=== PATIENT | male | born 1950 | race Caucasian/White ===

== ENCOUNTER 2018-01-24 08:51 | Day surgery (SDC) | payer OTHER ==
[2018-01-24] MEDS ORDERED: MEPERIDINE 25 MG/ML SYR IVP PRN (09:12)
[2018-01-24] MEDS ORDERED: fentaNYL 100 MCG/2 ML INJ IVP PRN (09:12)
[2018-01-24] MEDS ORDERED: NALOXONE HCL 0.4 MG/ML INJ IVP PRN (09:12)
[2018-01-24] MEDS ORDERED: FLUMAZENIL 0.5 MG/5 ML MDV IVP PRN (09:12)
[2018-01-24] MEDS ORDERED: MIDAZOLAM 2 MG/2 ML VIAL IVP PRN (09:12)
[2018-01-24] MEDS ORDERED: NS 1,000 ML IV SCH (09:15)
[2018-01-24] MEDS ORDERED: IOPAMIDOL (ISOVUE-300) 100 ML BTL ONE (10:32)
--- NOTE | 2018-01-24 10:53 | PDRADPRE ---
Radiology History & Physical Indication for procedure: cancer (Obstructive right hydronephrosis) Home medications: Acyclovir [Zovirax 200 mg] 200 mg PO BID 09/12/10 [Last Taken 01/23/18 17:00 200 ] Prednisone 20 mg PO QID 09/12/10 [Last Taken 01/23/18 14:00 20 mg] Aspirin 325 mg (*) 325 mg PO DAILY 01/23/18 [Last Taken 01/23/18 08:00 325 mg] Revlimid 01/23/18 [Last Taken 01/23/18 08:30 1 tab] morphINE [morphINE SCN ORAL SYR] 0.4 mg PO Q4HRS 01/23/18 [Last Taken 01/23/18 18:00 0.4] Prilosec 1 tab PO BID PRN 01/24/18 [Last Taken 01/23/18 19:00 1 tab] Allergies/Adverse Reactions: Sulfa (Sulfonamide Antibiotics) Allergy (Severe, Verified 11/11/10 08:55) Fever Mental status: A&Ox3 Heart exam: regular rate and rhythm Lungs exam: clear to auscultation Mallampati Score: Class 2
--- NOTE | 2018-01-24 10:53 | PDPROPOC ---
Sedation Plan of Care Sedation Plan of Care: vital signs stable, mental status noted, patient educated of risks, benefits, alternatives, patient can tolerate sedation ASA Classification: ASA 2 Planned drugs: fentanyl, midazolam Mallampati Score: Class 2 Mallampati Reference Image: Patient passed 3-3-2 rule?: Yes
--- NOTE | 2018-01-24 11:28 | PDRADPN ---
Radiology Procedure Note Date of Procedure: 01/24/18 Radiologist: Warren Loera Anesthesia: IV Sedation Pre-op Diagnosis: hydronephrosis Post-op Diagnosis: hydronephrosis Indication: malignant right ureteral obstruction Procedure: Right PCN tube Finding(s): severe right hydroureteronephrosis. 8 Fr PCN tube placed without complication. Inf/Abcess present in the surg proc area at time of surgery?: No Drains: Nephrostomy
[2018-01-24 14:58] VITALS: BP 101/56
== END 2018-01-24 15:13 | disposition home or self-care (01) ==
LOC: FIMAGING 08:51
PROVIDERS: ATTEND Radiology Vascular & Interventional Radiology
PROC: BT41ZZZ Ultrasonography of Right Kidney (ICD-10-PCS; principal; 2018-01-24 11:45)
PROC: 0T9330Z Drainage of Right Kidney Pelvis with Drainage Device, Percutaneous Approach (ICD-10-PCS; principal; 2018-01-24 11:45)
PROC: BT111ZZ Fluoroscopy of Right Kidney using Low Osmolar Contrast (ICD-10-PCS; principal; 2018-01-24 11:45)
DX: N13.0 Hydronephrosis with ureteropelvic junction obstruction (principal); C90.00 Multiple myeloma not having achieved remission; Z88.2 Allergy status to sulfonamides
CPT/HCPCS: 50432; 99152; C1729; C1769; J0696; J1644; J2250; J3010; Q9967

== ENCOUNTER 2018-03-05 14:45 | Inpatient (IN) | payer OTHER ==
[2018-03-05] MEDS ORDERED: ONDANSETRON DISINTEGRATING 4 MG TAB PO PRN (17:28)
[2018-03-05] MEDS ORDERED: oxyCODONE IR 5 MG TAB PO PRN (17:28)
[2018-03-05] MEDS ORDERED: ONDANSETRON 4 MG/2 ML VIAL IVP PRN (17:28)
[2018-03-05] MEDS ORDERED: ACETAMINOPHEN 325 MG TAB PO PRN (17:28)
[2018-03-05] MEDS ORDERED: PROMETHAZINE HCL 25 MG/ML INJ IVP PRN (17:28)
[2018-03-05] MEDS ORDERED: HYDROCODONE/APAP 5/325 TAB PO PRN (17:28)
--- NOTE | 2018-03-05 18:32 | PDGENHP ---
History and Physical - Chief Complaint weakness, abd swelling - History of Present Illness Patient is a 67 year old patient of Dr. 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 Patient notes that he also has abdominal pain, but denies diarrhea, nausea, vomiting, fever or chills. He did have issues recently with right sided hydronephrosis due to extrinsic compression from his abdominal mass and was treated with perc neph tube. He had his last course of chemotherapy on 02/23 ( velcaid and revlimid) and notes that he has been feeling poorly ever since then. He has not been able to eat very much and has lost a significant amount of weight, he thinks up to 30 pounds. At [facility] an abdominal CT was ordered which showed new left sided hydronephrosis, colon thickening and a questionable right lower lobe infiltrate. He was given IV vancomycin, zosyn, ceftriaxone, azithromycin and tamiflu at [facility]--it does not appear that a flu swab or blood or urine cultures were obtained there. History Information - Allergies/Home Medication List Allergies/Adverse Reactions: Sulfa (Sulfonamide Antibiotics) Allergy (Severe, Verified 11/11/10 08:55) Fever Home Medications: Acyclovir [Zovirax 200 mg] 200 mg PO BID 09/12/10 [Last Taken 01/23/18 17:00 200 ] Prednisone 20 mg PO QID 09/12/10 [Last Taken 01/23/18 14:00 20 mg] Aspirin 325 mg (*) 325 mg PO DAILY 01/23/18 [Last Taken 01/23/18 08:00 325 mg] Revlimid 01/23/18 [Last Taken 01/23/18 08:30 1 tab] morphINE [morphINE SCN ORAL SYR] 0.4 mg PO Q4HRS 01/23/18 [Last Taken 01/23/18 18:00 0.4] Prilosec 1 tab PO BID PRN 01/24/18 [Last Taken 01/23/18 19:00 1 tab] I have personally reviewed and updated: family history, medical history, social history, surgical history - Past Medical History cancer (NHL, now new dx of plasmacytoma), GERD - Surgical History Reports: no pertinent surgical hx - Family History Positive for: non-pertinent - Social History Smoking Status: Former smoker Alcohol Use: None Drug Use: None Additional social history: Review of Systems Review of Systems: ROS: 10pt was reviewed & negative except for what was stated in HPI & below Physical Exam Physical Exam: Temp Pulse Resp BP Pulse Ox 36.1 C 87 16 99/62 L 90 L 03/05/18 17:35 03/05/18 17:35 03/05/18 17:35 03/05/18 17:35 03/05/18 17:35 O2 (L/minute) 2 Constitutional: chronically ill appearing, uncomfortable, cachectic Eyes: PERRL, anicteric sclera Ears, Nose, Mouth, Throat: ears appear normal, dry mucous membranes Cardiovascular: regular rate and rhythym, no murmur, rub, or gallop, No edema Respiratory: no respiratory distress, no rales or rhonchi Gastrointestinal: tenderness, distension, No soft, non-tender abdomen, No guarding, No rebound Genitourinary: no bladder tenderness Skin: warm, normal color Musculoskeletal: full muscle strength Neurologic: AAOx3 Psychiatric: interacting appropriately, not anxious, flat affect Lab Data & Imaging Review Reviewed labs from [facility]: Wbc 21.1, HCt 32.6, Plt 181 Na 133, K 4.9, BUN 70, Creat 2.2 Visualized and Interpreted imaging results: Yes Interpretation: Reviewed CT report from [facility]: moderate R sided hydro. Ext thickening in colon wall. extensive adenopathy. mets adjacent to heart and lungs Assessment & Plan Assessment: Hydronephrosis (Acute) 67 yo M with hx of NHL and new dx of large intra abdominal plasmacytoma (dx in ) currently undergoing chemo with myeloma regimen presenting with generalized weakness with abdominal distension, brenna with new left hydronephrosis and likely pna. 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 Given extensive colon thickening possibility of infectious enteritis also exists though could all be related to cancer progression. Not clearly a surgical abdomen at this time but low threshold for repeat imaging if not improving. # plasmacytoma: being treated with velcaid and revlimid with last course on 02/23 , discussed with Dr. Borja and oncology will follow while in house. Discussed with patient and his who have been told that he is responding well to treatment currently, unfortunately in reviewing imaging there are multiple studies performed in different hospitals and very few reports comparing to prior imaging available. Will need to obtain CD from [facility]. # BRENNA: with creatinine on 02/23 noted to be 0.9, currently 2.2. Presumably due to obstructive nephropathy with e/o hydronephrosis due to extrinsic compression from extensive intra abdominal masses/adenopathy. Will get abd US to eval for perc neph placement in am. # bilateral hydronephrosis: with right sided perc neph and now likely needing left in am # pna: with concerns of RLL infiltrate on abd CT from [facility], blood cultures obtained there prior to abx, has gotten vanc/zosyn/ctx/azith/tamiflu today--will continue ctx/azith for now pending culture data. Will get CXR to further eval possible RLL infiltrate. Will get procalcitonin and resp PCR to eval for flu/other viral respiratory pathogens. # leukocytosis: without other clear SIRS criteria currently, will trend, patient has been on steroids recently # hx of NHL # protein calorie malnutrition: patient with significant weight loss and cachectic on exam, LFTs pending to check albumin, will get dietary consult # Full code. Discussed with patient and his , at this time they are not ready to discuss comfort care/hospice but understand that if things continue to decline that might be the most appropriate course. Will ask for palliative consult. # IP status, will need > 48 hours stay for eval/mgmt of above Patient new to my care. Old records reviewed and summarized as above. Care plan reviewed with ER doc from [facility] including plan to transfer, care plan reviewed with Dr. Borja. Further hx obtained from present at bedside.
[2018-03-05 18:57] LABS: PLATELET COUNT 196 10^3/uL (150-400)
[2018-03-05] MEDS: NS 1,000 ML IV SCH (20:30)
[2018-03-06 05:09] LABS: PLATELET COUNT 197 10^3/uL (150-400)
[2018-03-06] MEDS: VANCOMYCIN 125 MG/2.5 ML UDL PO SCH ×5 (05:32→20:47)
[2018-03-06] MEDS: NS 1,000 ML IV SCH (07:23)
--- NOTE | 2018-03-06 08:20 | PDMN ---
Medical Necessity Medical necessity: MCG: GRG urologic disease: bilateral hydronephrosis- pt presents with generalized weakness, abd pain/ distention min. bowel sounds, currently undergoing chemo with myeloma regimen for new dx large intra abdominal plasmacytoma, NHL, also with BRENNA Cr. 2.2, also concern for cPNA, RLL infiltrate seen on abd CT., leukocytosis, protein calorie malnutrition- sig. wt. loss, will obtain dietary consult., oncology consults. anticipate > 2 MN ongoing med nec care, further eval and tx
[2018-03-06] MEDS ORDERED: AZITHROMYCIN IV 500 MG in NS 250 ML IV SCH (09:00)
--- NOTE | 2018-03-06 09:09 | HOSPPROG ---
Hospitalist Progress Note Assessment/Plan: Critical care note Greater than 90 min of critical care time spent at bedside with 4 different visits today Patient of Dr. Borja on Velcade and Revlimid for a plasmacytoma in the abdomen with diffuse metastatic abdominal disease and retroperitoneal disease, after prior history of non-Hodgkin's lymphoma; presents now with weakness loss of appetite, weight loss, abdominal pain and distension and has just started having loose stools DIAGNOSES: * acute severe sepsis with organ failure has developed this morning; immune compromised host * C difficile colitis suspected with positive stool sample; clinically quite severe with significant distention of transverse colon, rapidly progressive renal failure hypotension tachycardia despite vancomycin and IV fluids overnight * acute renal failure, appears anuric at present despite IV fluids overnight * Will need to see if he responds to rapid fluid resuscitation with urine output * narrow complex tachycardia in the 165 range, on bedside monitor appears likely C diff but 12 lead EKG pending * history of hydronephrosis from retroperitoneal disease, percutaneous nephrostomy in place on right side * No current evidence of hydronephrosis per ultrasound here; question of anurea is impacting that finding * acute right lower lobe pneumonia based on abdominal CT from [facility] * Cultures pending at [facility] * Empiric Rocephin azithromycin started * acute metabolic encephalopathy due to above * known omental carcinomatosis and other peritoneal disease * protein calorie malnutrition * on treatment for plasmacytoma with Velcade and Revlimid, prior history of non- Hodgkin's lymphoma * full code per patient's desire PLANS: * Severe Sepsis protocol initiated, we have placed to new IVs here at the bedside but he will need PICC catheter * Transfer ICU * IV Flagyl ordered * Pending 12 lead EKG, he does have AFib may need to consider cardioversion or amiodarone depending on his stability * Dr. Brigette Montemayor will see from Infectious Disease, will also consult Critical Care and Nephrology * Further urine studies pending * NPO for now * Continue full cor order, as patient is non conversant, but will need to follow his course carefully and if he does not respond favorably to treatment of the above illnesses, his situation could turn futile SUBJECTIVE: Patient unable to respond verbally or follow commands OBJECTIVE Vitals reviewed: No fevers, blood pressure is a bit low, otherwise stable vitals Studio Coordinator, my review: Exam: Eyes closed, others some unintelligible noises occasionally but no response to verbal communication, some purposeful movements skin warm pale with significant decrease in capillary perfusion of digits resps not labored lungs diminished breath sounds patient unable to cooperate with any deep breaths heart regular abd soft obviously diffusely tender, slightly tense, limbs edema Right nephroscopy tube in place, currently no urine draining; Elise catheter in place again currently with no urine out Imaging: Abdominal ultrasound shows no evidence of hydronephrosis at present Objective: Vital Signs Temp Pulse Resp BP Pulse Ox 36.3 C 94 14 96/54 L 93 03/06/18 04:44 03/06/18 04:44 03/06/18 04:44 03/06/18 04:44 03/06/18 04:44 Microbiology 03/05/18 23:45 Respiratory Panel (PCR) - Final Nasal, Sinus - Swab No Organism Detected Laboratory Results 03/06/18 04:32 03/06/18 04:32 03/05/18 03/06/18 03/07/18 06:59 06:59 06:59 Intake Total 785 Balance 785 ICD10 Worksheet Patient Problems: Problems Problem Status Onset Hydronephrosis Acute
[2018-03-06] MEDS ORDERED: NS 1,000 ML IV ONE ×2 (10:16)
[2018-03-06] MEDS: HYDROmorphONE/DILAUDID 1 MG/ML INJ IVP PRN ×4 (12:24→22:38)
[2018-03-06] MEDS ORDERED: ALTEPLASE 2 MG VIAL IVP PRN (12:33)
--- NOTE | 2018-03-06 14:01 | PDCONSULT ---
Route Sales Delivery Driver Note: History and Physical - Chief Complaint Weakness - History of Present Illness The patient is a 67 y/o M with a known h/o a plasmacytoma currently on Velcade and Revlamid (due for 4th tx today) who presented yesterday from [facility] for diarrhea, weakness, and abdominal pain. The patient himself has been nearly obtunded since admission and unable to provide history, however his reports that he has not been feeling well for a few days and having severe constipation. No fever, chills, vomiting, or cough. He has lost a significant amount of weight due to poor po intake. He has a known h/o nephrolithiasis and has passed several stones. In addition, he had extrinsic compression due to his abdominal mass causing hydronephrosis of the R kidney and is s/p nephrostomy tube placement. Upon admission, he was diagnosed with C.diff infection and became more hypotensive and oliguric in the last 12 hours and was moved to the ICU. At present, he has a de león in place and is starting to make some UO. and daughter at bedside. Per his daughter he has been very stubborn about the severity of his illness and is still full code at this point. History Information - Allergies/Home Medication List Sulfa (Sulfonamide Antibiotics) Allergy (Severe, Verified 11/11/10 08:55) Fever Home Medications: Acyclovir [Zovirax 200 mg] 200 mg PO BID 09/12/10 [Last Taken 01/23/18 17:00 200 ] Prednisone 20 mg PO QID 09/12/10 [Last Taken 01/23/18 14:00 20 mg] Aspirin 325 mg (*) 325 mg PO DAILY 01/23/18 [Last Taken 01/23/18 08:00 325 mg] Revlimid 01/23/18 [Last Taken 01/23/18 08:30 1 tab] morphINE [morphINE SCN ORAL SYR] 0.4 mg PO Q4HRS 01/23/18 [Last Taken 01/23/18 18:00 0.4] Prilosec 1 tab PO BID PRN 01/24/18 [Last Taken 01/23/18 19:00 1 tab] - Past Medical History cancer (NHL, now new dx of plasmacytoma), GERD, nephrolithiasis - Surgical History R hydronephrosis s/p nephrostomy - Family History Non-contributory - Social History Smoking Status: Former smoker Alcohol Use: None Drug Use: None Review of Systems ROS: 10pt was reviewed & negative except for what was stated in HPI & below Physical Exam Physical Exam: General: Not waking up to voice, cachectic HEENT: No trauma, dry MM Neck: No lymphadenopathy noted, no thyromegaly RESP: CTA b/l HEART: RRR, no murmurs ABD: Distended, no guarding EXT: No edema, thin De León in place Temp Pulse Resp BP Pulse Ox 36.3 C 83 12 89/56 L 99 03/06/18 04:44 03/06/18 13:00 03/06/18 13:00 03/06/18 13:00 03/06/18 13:00 O2 (L/minute) 4 Labs: WBC 19.20 10^3/uL (3.80-9.50) H 03/06/18 04:32 RBC 3.92 10^6/uL (4.40-6.38) L 03/06/18 04:32 Hgb 11.9 g/dL (13.7-17.5) L 03/06/18 04:32 Hct 35.6 % (40.0-51.0) L 03/06/18 04:32 MCV 90.8 fL (81.5-99.8) 03/06/18 04:32 MCH 30.4 pg (27.9-34.1) 03/06/18 04:32 MCHC 33.4 g/dL (32.4-36.7) 03/06/18 04:32 RDW 15.8 % (11.5-15.2) H 03/06/18 04:32 Plt Count 197 10^3/uL (150-400) 03/06/18 04:32 MPV 12.1 fL (8.7-11.7) H 03/06/18 04:32 Neut % (Auto) Not Reported 03/06/18 04:32 Lymph % (Auto) Not Reported 03/06/18 04:32 [place] % (Auto) Not Reported 03/06/18 04:32 Eos % (Auto) Not Reported 03/06/18 04:32 Baso % (Auto) Not Reported 03/06/18 04:32 Nucleat RBC Rel Count Not Reported 03/06/18 04:32 Absolute Neuts (auto) Not Reported 03/06/18 04:32 Absolute Lymphs (auto) Not Reported 03/06/18 04:32 Absolute Monos (auto) Not Reported 03/06/18 04:32 Absolute Eos (auto) Not Reported 03/06/18 04:32 Absolute Basos (auto) Not Reported 03/06/18 04:32 Absolute Nucleated RBC Not Reported 03/06/18 04:32 Immature Gran % Not Reported 03/06/18 04:32 Seg Neutrophils % 45.0 % 03/06/18 04:32 Band Neutrophils % 13.0 % 03/06/18 04:32 Lymphocytes % 8.0 % 03/06/18 04:32 Monocytes % 34.0 % 03/06/18 04:32 Eosinophils % 0.0 % 03/06/18 04:32 Basophils % 0.0 % 03/06/18 04:32 Metamyelocytes % 0.0 % 03/06/18 04:32 Myelocytes % 0.0 % 03/06/18 04:32 Promyelocytes % 0.0 % 03/06/18 04:32 Blast Cells % 0.0 % 03/06/18 04:32 Immature Gran # Not Reported 03/06/18 04:32 Absolute Seg Neuts 8.64 10^/uL (1.70-6.50) H 03/06/18 04:32 Absolute Band Neuts 2.50 10^3/uL (0.00-0.70) H 03/06/18 04:32 Absolute Lymphocytes 1.54 10^3/uL (1.00-3.00) 03/06/18 04:32 Absolute Monocytes 6.53 10^3/uL (0.30-0.80) H 03/06/18 04:32 Absolute Eosinophils 0.00 10^3/uL (0.03-0.40) L 03/06/18 04:32 Absolute Basophils 0.00 10^3/uL (0.02-0.10) L 03/06/18 04:32 Absolute Metamyelocyte 0.00 10^3/mL (0.00-0.00) 03/06/18 04:32 Absolute Myelocytes 0.00 10^3/mL (0.00-0.00) 03/06/18 04:32 Absolute Promyelocytes 0.00 10^3/uL (0.00-0.00) 03/06/18 04:32 Absolute Plasma Cells 0.00 10^3/uL (0.00-0.00) 03/06/18 04:32 Nucleated RBCs 0 /100 WBC (0-0) 03/05/18 18:50 Absolute Blast Cells 0.00 10^3/uL (0.00-0.00) 03/06/18 04:32 Plasma Cells % 0.0 % 03/06/18 04:32 Platelet Estimate ADEQUATE (ADEQ) 03/06/18 04:32 Polychromasia 1+ H 03/06/18 04:32 Oval Macrocytes 1+ H 03/06/18 04:32 Echinocytes 1+ H 03/06/18 04:32 Elliptocytes 1+ H 03/05/18 18:50 Smear Review By Aria NAVAS MD 03/06/18 04:32 VBG Lactic Acid 3.2 mmol/L (0.7-2.1) H 03/06/18 13:35 Sodium 132 mEq/L (135-145) L 03/06/18 10:00 Potassium 5.8 mEq/L (3.3-5.0) H 03/06/18 10:00 Chloride 101 mEq/L (97-110) 03/06/18 10:00 Carbon Dioxide 13 mEq/l (22-31) L 03/06/18 10:00 Anion Gap 18 mEq/L (6-14) H 03/06/18 10:00 BUN 92 mg/dL (7-23) H 03/06/18 10:00 Creatinine 2.9 mg/dL (0.7-1.3) H 03/06/18 10:00 Estimated GFR 22 03/06/18 10:00 Glucose 146 mg/dL (70-100) H 03/06/18 10:00 Calcium 7.0 mg/dL (8.5-10.4) L 03/06/18 10:00 Phosphorus 9.5 mg/dL (2.5-4.5) H 03/06/18 04:32 Magnesium 1.8 mg/dL (1.6-2.3) 03/06/18 04:32 Total Bilirubin 0.5 mg/dL (0.1-1.4) 03/06/18 Unknown Conjugated Bilirubin 0.4 mg/dL (0.0-0.5) 03/05/18 18:50 Unconjugated Bilirubin 0.1 mg/dL (0.0-1.1) 03/05/18 18:50 AST 18 IU/L (17-59) 03/05/18 18:50 ALT 29 IU/L (21-72) 03/05/18 18:50 Alkaline Phosphatase 53 IU/L (38-126) 03/05/18 18:50 Total Protein 5.1 g/dL (6.3-8.2) L 03/05/18 18:50 Albumin 2.7 g/dL (3.5-5.0) L 03/05/18 18:50 Procalcitonin 5.25 ng/mL (0.02-0.10) H 03/05/18 18:50 Urine Color YELLOW 03/06/18 01:30 Urine Appearance TURBID 03/06/18 01:30 Urine pH 5.0 (5.0-7.5) 03/06/18 01:30 Ur Specific [place] 1.018 (1.002-1.030) 03/06/18 01:30 Urine Protein 2+ (NEGATIVE) H 03/06/18 01:30 Urine Ketones NEGATIVE (NEGATIVE) 03/06/18 01:30 Urine Blood 3+ (NEGATIVE) H 03/06/18 01:30 Urine Nitrate NEGATIVE (NEGATIVE) 03/06/18 01:30 Urine Bilirubin NEGATIVE (NEGATIVE) 03/06/18 01:30 Urine Urobilinogen NEGATIVE EU (0.2-1.0) 03/06/18 01:30 Ur Leukocyte Esterase 3+ (NEGATIVE) H 03/06/18 01:30 Urine RBC 50-182 /hpf (0-3) H 03/06/18 01:30 Urine WBC 50-182 /hpf (0-3) H 03/06/18 01:30 Ur Epithelial Cells 1+ /lpf (NONE-1+) 03/06/18 01:30 Urine Mucus 3+ /lpf (NONE-1+) H 03/06/18 01:30 Ur Culture Indicated? Cancelled 03/05/18 Unknown Ur Random Creatinine 42.1 mg/dL 03/06/18 12:12 U Random Total Protein 157 mg/dL (0-11) H 03/06/18 12:12 Ur Random Sodium 16 mEq/L (30-90) L 03/06/18 12:12 Urine Glucose NEGATIVE (NEGATIVE) 03/06/18 01:30 C. difficile Tox (PCR) POSITIVE (NEGATIVE) H 03/05/18 18:45 Imaging: Renal US shows no hydronephrosis. Assessment/Plan: 67 y/o M with a known h/o abdominal plasmacytoma who presented with C.diff infection and BRENNA. The patient has no current evidence of obstruction, a low Lucille, and is starting to respond to fluids. Differential is likely pre-renal azotemia however cannot r/o ATN. In addition, consideration of paraprotein kidney injury as well as TLS, and AIN associated with bortezomib and lenalidomide. BRENNA -baseline Cr 1.0, now up to 2.9 -monitor UO, de león in place -continue IVF as below -will quantify proteinuria -keep MAP>65 -urine culture recommended -holding chemotherapy and nephrotoxins for now -no acute indication for dialysis, however family states patient would like to proceed with this therapy if necessary -will order BMP for later today and continue to monitor Hyponatremia -may be pre-renal, however has been low since 02/20 and may also be isoosmotic 2/ 2 to paraproteinemia -will send serum osm -continue to monitor Acidosis -bicarb 13 -likely AG 2/2 to elevated lactate, however may also be NAG 2/2 to diarrhea and C.diff -on abx renally dosed -ABG ordered -switch fluids to D5/150meQ bicarb at 150ml/hr Hyperkalemia -currently 5.8 -monitor on telemetry -hold shift for now Hyperphosphatemia -likely BRENNA and possibly TLS -send uric acid -calcium corrects to 8.3, will monitor ionized as well -NPO Consult appreciated, will continue to follow. Please contact #[phone] if questions.
--- NOTE | 2018-03-06 14:01 | GCON ---
INFECTIOUS DISEASE CONSULTATION DATE OF CONSULTATION: 03/06/2018 REFERRING PHYSICIAN: Cristhian Beltran MD REASON FOR CONSULTATION: Severe Clostridium difficile colitis. HISTORY OF PRESENT ILLNESS: 67-year-old male with a past medical history of non -Hodgkin's lymphoma and recent diagnosis of multiple myeloma and plasmacytoma that is 20 cm who over the last couple of weeks has had some progressive decline and developed increased abdominal distention on March 04. Subsequently, his mother brought him to the closest hospital for further evaluation. At [facility], patient underwent a CT abdomen, pelvis, which showed moderate left-sided hydronephrosis, and basically, his entire colon is thickened and a small amount of ascites. This was based off the report I was provided from the hospital. A Elise was placed at [facility] and patient has a pre-existing right nephrostomy tube in place. In the records, it stated that he had blood cultures and urine cultures obtained, but this data is still pending. In addition, patient was noticed to have acute renal failure with a creatinine of 2.2 and a white count of 21,000. The patient was given IV ceftriaxone, Zosyn, vancomycin, and Tamiflu, and was transferred here due to his primary oncology team resides here at [facility]. [facility]. The patient at the time of my exam is complaining of back pain. Primary complaint is abdominal distention. Patient does not complain of diarrhea. He did recently undergo a tooth extraction about 2 weeks ago for which he received a course of Augmentin. PAST MEDICAL HISTORY: Includes non-Hodgkin's lymphoma in 2010, multiple myeloma and plasmacytoma as per HPI, pseudomonal bacteremia with episode of neutropenia 08/2010, low immunoglobulins were likely related to multiple myeloma with an IgG 423, IgA 701, IgM 12 on 02/10/2028. PAST SURGICAL HISTORY: Non-pertinent. FAMILY HISTORY: Reviewed and noncontributory. SOCIAL HISTORY: Former smoker. No alcohol. No drugs. Patient is . ALLERGIES: Sulfa causes fever. This was assessed in 2010. MEDICATIONS: Home medications: Acyclovir 200 b.i.d., prednisone, aspirin, Revlimid, morphine, and Prilosec. While hospitalized, he received 2 doses of ceftriaxone, a dose of Zosyn, 1 dose of vancomycin, a dose of azithromycin, and Tamiflu. REVIEW OF SYSTEMS: A complete 10-point review of systems was performed and is negative, except as mentioned in the HPI. PHYSICAL EXAM: VITAL SIGNS: Blood pressure is 113/68, heart rate 83, respiratory rate 21, saturation 100% on 4 L. He has been afebrile throughout his hospital course. GENERAL: This is a cachectic, ill-appearing male lying in bed moaning in pain. HEENT: Pale conjunctivae. Oropharynx: Fair dentition. Very dry mucous membranes. Possible ulceration on his right tongue , but the patient denies pain. NECK: Significant wasting. Was supple. CARDIOVASCULAR: Regular rate. No murmurs. CHEST: Shallow inspiratory effort. Decreased breath sounds in the bases. ABDOMEN: Distended, firm. Absent bowel sounds in all 4 quadrants. No peritoneal signs. : He had no groin pain. He had a Elise in place and a right nephrostomy tube, both with wallace colored urine. EXTREMITIES: No clubbing, cyanosis, or edema. SKIN: No rashes. LABORATORY: White count 19.2, hematocrit 35, platelets 197, 45% neutrophils, 13 % bands, 8% lymphocytes, 34% monocytes. Lactic acid 4.8. Creatinine 2.9. Procalcitonin 5.2. Urinalysis showed pyuria. C difficile PCR positive. IMAGING: As per HPI. ASSESSMENT/PLAN: This is a 67-year-old male with multiple myeloma and plasmacytoma with extensive metastatic disease, unclear last chemo, who presents with increasing abdominal distention and pain who is found to have a marked leukocytosis, acute renal failure, all consistent with sepsis. This differential diagnosis, includes severe Clostridium difficile colitis, but also could include ischemic bowel or bowel perforation with peritonitis. Chest x- ray was personally reviewed by me and has a faint infiltrate at the right base, but patient did not complain of respiratory symptoms, but is certainly at risk for aspiration. At this time, most of the data, including imaging, white count , recent history of antibiotic use, abdominal distention that was of rapid onset is all most consistent with Clostridium difficile with severe ileus associated with Clostridium difficile, possible early toxic megacolon. 1. Due to high degree of suspicion for Clostridium difficile and lack of other source of infection at this point, would treat for Clostridium difficile alone with dual therapy with high-dose vancomycin due to poor bowel motility and would administer orally or by nasogastric tube. Would also co-administer intravenous Flagyl. Significant morbidity associated with this condition. Also would consider ischemic bowel. We will continue to monitor for this and primary team is measuring intraabdominal pressures via Elise. 2. Would hold systemic antibiotics at this point as this can exacerbate severe Clostridium difficile. 3. Patient noted to have low immunoglobulins. Would recheck these levels. Could consider immunoglobulin repletion. Time 75 min >50% time spent with education and counseling of patient's family and coordination of care with critical care, hospitalist and nursing. Review of outside records was also undertaken. Thank you for this consultation. We will continue to follow on a daily basis. /[id number]/MODL MTDD
--- NOTE | 2018-03-06 16:35 | PDCONSULT ---
Clerical Support Specialist Note: Hematology/oncology consultation note Referring provider: Cristhian Beltran Reason for consultation: History of multiple myeloma with an extramedullary plasmacytoma History of present illness: Bennett is a very pleasant 67-year-old male with history of Hodgkin lymphoma in 2010 currently ERIC now with a diagnosis of IgA kappa multiple myeloma who was admitted for severe C diff colitis. He initially was diagnosed with Hodgkin's lymphoma in 2010 was treated with ABVD/escalated BEACOPP for which he has no evidence of disease. Then in May of 2016 he developed significant diarrhea and [address] imaging demonstrated mesenteric adenopathy with biopsy demonstrating a polyp clinic lymphocytic infiltrate. He subsequently had a CT of the abdomen November of this year that demonstrated 20 x 21 x 8 cm central mesenteric mass. He does have peripheral production monoclonal protein being IgA kappa. He has been treated with Revlimid Velcade and dexamethasone in his received 3 cycles. He has had a response with his monoclonal protein production going from 1.6 grams/deciliter down to 0.9. He has also had near normalization of his kappa lambda ratio from 10.8 down to 1.7. He was admitted to [facility] due to symptoms of confusion alongside concern for profound C diff colitis. He was receiving Augmentin prior to admission. He was having worsening abdominal pain as well. His brother who is at bedside states that over the last few days he has become progressively confused and has become bed bound. He was seen at [facility] where imaging demonstrated moderate left-sided hydronephrosis and significant colitis. He has been treated with IV Flagyl and p.o. Vancomycin for C diff colitis. He has also received IV fluids with improvement in his tachycardia. Past medical and surgical history: Obtained from medical records given patient's confusion Hodgkin lymphoma in 2010 Pseudomonas bacteremia Multiple myeloma Family history: Reviewed in the medical record, noncontributory. Social history: Former smoker no alcohol. He is . Allergies: Sulfa Medications Generic Name Dose Route Start Last Admin Trade Name Freq PRN Reason Stop Dose Admin Hydromorphone HCl 0.2 - 0.4 mg 03/05/18 17:28 03/06/18 12:34 Dilaudid IVP 03/15/18 17:27 0.2 mg Q4HRS PRN Administration Pain, Severe Unable to Take PO Metronidazole/Sodium Chloride 100 mls @ 100 mls/hr 03/06/18 10:15 03/06/18 11 :43 Flagyl 500 Mg (Premix) IV 04/05/18 10:14 100 mls Q8H VAUGHN Administration Oxycodone HCl 5 - 10 mg 03/05/18 17:28 03/05/18 20:12 Oxycodone Ir PO 03/15/18 17:27 5 mg Q3HRS PRN Administration Pain, Severe Able to Take PO Discontinued Medications Generic Name Dose Route Start Last Admin Trade Name Frealyssa PRN Reason Stop Dose Admin Sodium Chloride 1,000 mls @ 125 mls/hr 03/05/18 17:30 03/06/18 07:23 Ns IV 09/01/18 17:29 1,000 mls CONT VAUGHN Administration Azithromycin 500 mg/ Sodium 255 mls @ 255 mls/hr 03/06/18 09:00 03/06/18 11: 13 Chloride IV 04/05/18 08:59 255 mls DAILY VAUGHN Administration Protocol Ceftriaxone Sodium/Dextrose 50 mls @ 100 mls/hr 03/06/18 09:00 03/06/18 11:43 Rocephin 1 Gm (Premix) IV 04/05/18 08:59 50 mls DAILY VAUGHN Administration Protocol Sodium Chloride 1,000 mls @ 3,000 mls/hr 03/06/18 10:16 03/06/18 10:50 Ns IV 03/06/18 10:35 1,000 mls ONCE ONE Administration Sodium Chloride 1,000 mls @ 3,000 mls/hr 03/06/18 10:16 03/06/18 11:13 Ns IV 03/06/18 10:35 1,000 mls ONCE ONE Administration Vancomycin HCl 125 mg 03/06/18 06:00 03/06/18 13:00 Vancocin Oral Liquid PO 04/05/18 05:59 125 mg QID VAUGHN Administration Protocol Review of systems: A 12 point review systems could not be obtained given the patient's mental status. Physical examination Temp Pulse Resp BP Pulse Ox 36.3 C 93 18 100/60 9 L 03/06/18 04:44 03/06/18 15:00 03/06/18 15:00 03/06/18 15:00 03/06/18 15:00 O2 (L/minute) 4 General: Cachectic-appearing male, does not answer any questions, does not follow commands, occasionally groans HEENT: Temporal wasting noted, oropharynx is dry Cardiovascular: Regular rate and rhythm Pulmonary: On anterior auscultation no appreciable abnormalities, moving air Abdomen: Firm distended bowel sounds are hyperactive Lymph: No appreciable lymphadenopathy. Neuro: Moving all extremities, does not follow commands, does not answer questions. Extremities: No appreciable cyanosis clubbing or edema WBC 19.20 10^3/uL (3.80-9.50) H 03/06/18 04:32 RBC 3.92 10^6/uL (4.40-6.38) L 03/06/18 04:32 Hgb 11.9 g/dL (13.7-17.5) L 03/06/18 04:32 Hct 35.6 % (40.0-51.0) L 03/06/18 04:32 MCV 90.8 fL (81.5-99.8) 03/06/18 04:32 MCH 30.4 pg (27.9-34.1) 03/06/18 04:32 MCHC 33.4 g/dL (32.4-36.7) 03/06/18 04:32 RDW 15.8 % (11.5-15.2) H 03/06/18 04:32 Plt Count 197 10^3/uL (150-400) 03/06/18 04:32 MPV 12.1 fL (8.7-11.7) H 03/06/18 04:32 Neut % (Auto) Not Reported 03/06/18 04:32 Lymph % (Auto) Not Reported 03/06/18 04:32 [place] % (Auto) Not Reported 03/06/18 04:32 Eos % (Auto) Not Reported 03/06/18 04:32 Baso % (Auto) Not Reported 03/06/18 04:32 Nucleat RBC Rel Count Not Reported 03/06/18 04:32 Absolute Neuts (auto) Not Reported 03/06/18 04:32 Absolute Lymphs (auto) Not Reported 03/06/18 04:32 Absolute Monos (auto) Not Reported 03/06/18 04:32 Absolute Eos (auto) Not Reported 03/06/18 04:32 Absolute Basos (auto) Not Reported 03/06/18 04:32 Absolute Nucleated RBC Not Reported 03/06/18 04:32 Immature Gran % Not Reported 03/06/18 04:32 Seg Neutrophils % 45.0 % 03/06/18 04:32 Band Neutrophils % 13.0 % 03/06/18 04:32 Lymphocytes % 8.0 % 03/06/18 04:32 Monocytes % 34.0 % 03/06/18 04:32 Eosinophils % 0.0 % 03/06/18 04:32 Basophils % 0.0 % 03/06/18 04:32 Metamyelocytes % 0.0 % 03/06/18 04:32 Myelocytes % 0.0 % 03/06/18 04:32 Promyelocytes % 0.0 % 03/06/18 04:32 Blast Cells % 0.0 % 03/06/18 04:32 Immature Gran # Not Reported 03/06/18 04:32 Absolute Seg Neuts 8.64 10^/uL (1.70-6.50) H 03/06/18 04:32 Absolute Band Neuts 2.50 10^3/uL (0.00-0.70) H 03/06/18 04:32 Absolute Lymphocytes 1.54 10^3/uL (1.00-3.00) 03/06/18 04:32 Absolute Monocytes 6.53 10^3/uL (0.30-0.80) H 03/06/18 04:32 Absolute Eosinophils 0.00 10^3/uL (0.03-0.40) L 03/06/18 04:32 Absolute Basophils 0.00 10^3/uL (0.02-0.10) L 03/06/18 04:32 Absolute Metamyelocyte 0.00 10^3/mL (0.00-0.00) 03/06/18 04:32 Absolute Myelocytes 0.00 10^3/mL (0.00-0.00) 03/06/18 04:32 Absolute Promyelocytes 0.00 10^3/uL (0.00-0.00) 03/06/18 04:32 Absolute Plasma Cells 0.00 10^3/uL (0.00-0.00) 03/06/18 04:32 Nucleated RBCs 0 /100 WBC (0-0) 03/05/18 18:50 Absolute Blast Cells 0.00 10^3/uL (0.00-0.00) 03/06/18 04:32 Plasma Cells % 0.0 % 03/06/18 04:32 Platelet Estimate ADEQUATE (ADEQ) 03/06/18 04:32 Polychromasia 1+ H 03/06/18 04:32 Oval Macrocytes 1+ H 03/06/18 04:32 Echinocytes 1+ H 03/06/18 04:32 Elliptocytes 1+ H 03/05/18 18:50 Smear Review By Aria NAVAS MD 03/06/18 04:32 Puncture Site LEFT RADIAL 03/06/18 14:25 Patient Temperature 36.7 DEGREES 03/06/18 14:25 pCO2 22 mmHg (34-38) L 03/06/18 14:25 pO2 84 mmHg (65-75) H 03/06/18 14:25 Total CO2 12 mEq/L (23-27) L 03/06/18 14:25 ABG pH 7.32 (7.35-7.45) L 03/06/18 14:25 ABG HCO3 11 mEq/L (22-26) L 03/06/18 14:25 ABG O2 Saturation 94 % (92-95) 03/06/18 14:25 ABG Base Excess -13.3 mEq/L (-2.5-2.5) L 03/06/18 14:25 VBG Lactic Acid 3.2 mmol/L (0.7-2.1) H 03/06/18 13:35 Total O2 Concentration 3.0 LITERS 03/06/18 14:25 Sodium 132 mEq/L (135-145) L 03/06/18 10:00 Potassium 5.8 mEq/L (3.3-5.0) H 03/06/18 10:00 Chloride 101 mEq/L (97-110) 03/06/18 10:00 Carbon Dioxide 13 mEq/l (22-31) L 03/06/18 10:00 Anion Gap 18 mEq/L (6-14) H 03/06/18 10:00 BUN 92 mg/dL (7-23) H 03/06/18 10:00 Creatinine 2.9 mg/dL (0.7-1.3) H 03/06/18 10:00 Estimated GFR 22 03/06/18 10:00 Glucose 146 mg/dL (70-100) H 03/06/18 10:00 Calcium 7.0 mg/dL (8.5-10.4) L 03/06/18 10:00 Phosphorus 9.5 mg/dL (2.5-4.5) H 03/06/18 04:32 Magnesium 1.8 mg/dL (1.6-2.3) 03/06/18 04:32 Total Bilirubin 0.5 mg/dL (0.1-1.4) 03/06/18 Unknown Conjugated Bilirubin 0.4 mg/dL (0.0-0.5) 03/05/18 18:50 Unconjugated Bilirubin 0.1 mg/dL (0.0-1.1) 03/05/18 18:50 AST 18 IU/L (17-59) 03/05/18 18:50 ALT 29 IU/L (21-72) 03/05/18 18:50 Alkaline Phosphatase 53 IU/L (38-126) 03/05/18 18:50 Total Protein 5.1 g/dL (6.3-8.2) L 03/05/18 18:50 Albumin 2.7 g/dL (3.5-5.0) L 03/05/18 18:50 Procalcitonin 5.70 ng/mL (0.02-0.10) H 03/06/18 13:35 Urine Color YELLOW 03/06/18 01:30 Urine Appearance TURBID 03/06/18 01:30 Urine pH 5.0 (5.0-7.5) 03/06/18 01:30 Ur Specific Radiant 1.018 (1.002-1.030) 03/06/18 01:30 Urine Protein 2+ (NEGATIVE) H 03/06/18 01:30 Urine Ketones NEGATIVE (NEGATIVE) 03/06/18 01:30 Urine Blood 3+ (NEGATIVE) H 03/06/18 01:30 Urine Nitrate NEGATIVE (NEGATIVE) 03/06/18 01:30 Urine Bilirubin NEGATIVE (NEGATIVE) 03/06/18 01:30 Urine Urobilinogen NEGATIVE EU (0.2-1.0) 03/06/18 01:30 Ur Leukocyte Esterase 3+ (NEGATIVE) H 03/06/18 01:30 Urine RBC 50-182 /hpf (0-3) H 03/06/18 01:30 Urine WBC 50-182 /hpf (0-3) H 03/06/18 01:30 Ur Epithelial Cells 1+ /lpf (NONE-1+) 03/06/18 01:30 Urine Mucus 3+ /lpf (NONE-1+) H 03/06/18 01:30 Ur Culture Indicated? Cancelled 03/05/18 Unknown Ur Random Creatinine 42.1 mg/dL 03/06/18 12:12 U Random Total Protein 157 mg/dL (0-11) H 03/06/18 12:12 Ur Random Sodium 16 mEq/L (30-90) L 03/06/18 12:12 Urine Glucose NEGATIVE (NEGATIVE) 03/06/18 01:30 C. difficile Tox (PCR) POSITIVE (NEGATIVE) H 03/05/18 18:45 Assessment and plan This is a very pleasant 67-year-old male with history of Hodgkin lymphoma and now with a history of multiple myeloma complicated by a large abdominal extra medullary plasmacytoma who was admitted for fall minute C diff colitis. 1. C diff colitis: His previously receiving Augmentin. He is currently receiving IV Flagyl alongside oral vancomycin. Appreciate the consultation from Infectious Diseases. 2. Multiple myeloma: He has a very large extra medullary plasmacytoma within his abdomen. He appears to be responding to Velcade, Revlimid and dexamethasone give improvement in his monoclonal protein production. 3. Acute renal failure: He is receiving IV fluids given his underlying dehydration. He is producing some urine now. Will continue to follow along. Appreciate the opportunity to be involved with his care.
--- NOTE | 2018-03-06 17:42 | GCON ---
CRITICAL CARE CONSULTATION DATE OF CONSULTATION: 03/06/2018 HISTORY OF PRESENT ILLNESS: This patient is a complicated 67-year-old male who has a longstanding hi story of non-Hodgkin's lymphoma with known abdominal and omental carcinomatosis and at least right-si ded hydronephrosis who has been treated with a variety of chemotherapeutic agents who developed a karla smacytoma in November 2017. He was then treated with Velcade and Revlimid for this, but developed abdomi nal pain, weight loss, and weakness, and was brought to the nearest hospital on 03/05, that was [facility] where a CT scan showed a right lower lobe infiltrate, diffuse colonic thickening consistent with colitis. He was treated with vancomycin, Zosyn, ceftriaxone, Zithromax, and Tamiflu, but was t ransferred here yesterday. He was hemodynamically stable at that time, but he apparently this mornin g dropped his blood pressure to 80/50 with a heart rate of about 140. Dr. Beltran was evaluating him at that time, thought that the rhythm was irregular and thought that may have been the primary cause. He was given 2 L of fluid, which resulted in a decrease in the heart rate to the 110s and an improv ement in his blood pressure without requiring pressors. He was therefore moved to the intensive care unit at that time. The patient, himself, is fairly somnolent, but he did answer some questions. He denied any respirato ry distress. There was no cough or sputum production. His primary complaint was abdominal pain. He did not have any diarrhea and was unable to answer much more questions than that. REVIEW OF SYSTEMS: Therefore is otherwise negative. PAST MEDICAL HISTORY: Includes: 1. Non-Hodgkin's lymphoma. 2. Plasmacytoma. 3. Peritoneal carcinomatosis. 4. Right-sided hydronephrosis, secondary to mass effect resulting in percutaneous nephrostomy tube p lacement. 5. Gastroesophageal reflux disease. 6. Chronic prednisone. 7. Bacteremia in 2010. FAMILY HISTORY: Noncontributory. SOCIAL HISTORY: He is a former smoker, but none currently. CURRENT MEDICATIONS: Include [place], Dilaudid, Ativan, IV Flagyl, Zofran Phenergan, bicarb, oral vanc omycin, both of which were started today. PHYSICAL EXAM: VITAL SIGNS: He has been afebrile. His blood pressure now is 96/56, heart rate of 9 0 in sinus rhythm, respirations 20, oxygen saturation 99% on 4 L. GENERAL: He was very cachectic, i ll-appearing, and somnolent, though he did arouse to voice and answer questions appropriately. HEENT : Pupils were equally round and reactive to light. Nonicteric and noninjected. Mucous membranes we re dry without evidence of thrush. NECK: Supple, without adenopathy or jugular vein distention. EUGENIO NGS: Breath sounds were diminished bilaterally, but no obvious wheezes, rubs, or rales. HEART: Reg ular rate and rhythm. I could not detect a murmur. ABDOMEN: Rock hard with obvious guarding, but n o rebound affect. Bowel tones were hypoactive. He has a right nephrostomy tube in place without sydney dence of superficial infection. EXTREMITIES: No clubbing, cyanosis, or edema. NEUROLOGIC: Somnole nce, but no obvious cranial nerve defects or other motor deficits. OBJECTIVE DATA: Includes a white blood cell count of 19.2, which is down slightly from yesterday, he matocrit is 35.6, platelets of 197. There were no significant eosinophils. Lactic acid was 2.5 late yesterday, was up to 4.8 at 10 this morning, is down to 3.2 at 1335 today. Sodium is 132, potassium 5.8, chloride 101, bicarb of 13, with an anion gap of 18, BUN 92, creatinine 2.9, calcium 7.0. Urin alysis looked contaminated yesterday, but there was 3+ leukocyte esterase. Stool was positive for C diff Chest x-ray is fairly unremarkable, though there is a small pleural effusion with some atelectasis. Abdominal x-ray shows thumbprinting consistent with colitis, but no free air. ASSESSMENT/PLAN: 1. Hypotension in the setting of probable infection. Stool was positive for Clostridium difficile. This certainly could be the causative agent here and he has been seen by Infectious Disease. An NG tube is being placed to provide oral vancomycin and continue on with the intravenous Flagyl. The res t of his antibiotics were discontinued at this time per Infectious Disease recommendations. Other po tential infectious sources could be bacteremia as he has had in the past, as well as peritonitis. Pu lmonary is possible that the source of infection, but seems less likely. The fact that he responded quite well to intravenous fluids was very encouraging. We will watch him closely. A peripherally in serted central catheter line is being placed. Other possibilities for his hypotension, include atria l fibrillation with rapid ventricular response, which was not well documented and very short-lived if it was there. If he fails to respond, I think that of troponins and echocardiograms certainly would be important particularly since multiple myeloma can indirectly affect heart. Mesenteric ischemia i s also a possibility. Not mentioned above was a procalcitonin of 5.25 yesterday. I would like to se e that again to show that is decreasing, as well as his lactate and white count. If his procalcitoni n was substantially reduced, I might be more concerned about mesenteric ischemia. Bladder pressures are being checked at this time, which I certainly agree with. 2. Acute renal failure, probably related to his hypotension. A bicarb drip was just started, which I agree with at this time just to try to preserve his kidneys. 3. Relative obtundation and mental status change related to all the above. He does appear to be pro tecting his airway at this time and remains a full code, and we will just have to watch for improveme nt. A total of 65 minutes of critical care time was required in the evaluation of this patient. /[id number]/MODL
[2018-03-06] MEDS ORDERED: PROTOCOL CALCIUM 1 DOSE IV PRN (19:13)
[2018-03-06] MEDS: NOREPINEPHRINE BITARTRATE 4 MG in NS 500 ML IV SCH (19:30)
[2018-03-06] MEDS ORDERED: NS BOLUS 500 ML (Wide open) IV ONE (19:30)
[2018-03-06] MEDS: SODIUM BICARBONATE 150 MEQ in D5W 1,000 ML IV SCH (20:29)
[2018-03-06] MEDS: morphINE SR 15 MG TAB PO SCH (20:50)
[2018-03-06] MEDS ORDERED: CALCIUM GLUCONATE 1 GM in NS 50 ML IV ONE (21:00)
[2018-03-07] MEDS: HYDROmorphONE/DILAUDID 1 MG/ML INJ IVP PRN ×7 (02:38→22:18)
[2018-03-07 05:24] LABS: PLATELET COUNT 155 10^3/uL (150-400)
[2018-03-07] MEDS: VANCOMYCIN 125 MG/2.5 ML UDL PO SCH ×4 (06:30→22:12)
[2018-03-07] MEDS: NOREPINEPHRINE BITARTRATE 4 MG in NS 500 ML IV SCH ×2 (06:33→17:54)
[2018-03-07] MEDS: SODIUM BICARBONATE 150 MEQ in D5W 1,000 ML IV SCH ×3 (06:33→23:39)
--- NOTE | 2018-03-07 08:33 | PCMIDPN ---
Assessment/Plan: # Severe Sepsis in a immune-compromised host due to severe C diff. WBC slightly better, abdomen a bit softer but patient requiring pressors: Patient is on dual therapy with high-dose oral vancomycin due to decreased GI motility to improve delivery of vancomycin distally, plus IV metronidazole. Patient remains critically ill. --continue high-dose p.o. Vancomycin plus IV metronidazole --followed up of blood cultures from outside hospital and are negative --checked immunoglobulins with underlying multiple myeloma # Multiple myeloma: Previously on Velcade, Revlimid and dexamethasone Microbiology 03/05 blood cultures 2 sets at [facility]: no growth to date 03/06 blood cultures (2 sets): Pending Medications Vancomycin 500 mg p.o. Four times daily, # 1 Metronidazole 500 mg IV Q 8, # 1 Subjective: Patient remains delirious, not responding to commands Patient given stress dose steroids and started on vasopressin Patient has fecal leakage Objective: Vital Signs Temp Pulse Resp BP Pulse Ox 36.5 C 90 14 93/65 L 92 03/06/18 16:00 03/07/18 06:00 03/07/18 06:00 03/07/18 06:00 03/07/18 06:00 Microbiology 03/05/18 23:45 Respiratory Panel (PCR) - Final Nasal, Sinus - Swab No Organism Detected Laboratory Results 03/07/18 05:00 03/07/18 05:00 03/06/18 03/07/18 03/08/18 05:59 05:59 05:59 Intake Total 785 1980 Output Total 560 Balance 785 1420 - Physical Exam General Appearance: cachetic, toxic EENT: dry mucous membranes, No thrush Respiratory: lungs clear, No accessory muscle use Neck: supple Cardiac/Chest: regular rate, rhythm Extremities: other (Muscle wasting of all 4 extremities), No pedal edema Abdomen: distended, other (Decreased bowel sounds, still quite distended but softer than yesterday, no peritoneal signs) Male Genitalia: de león (With wallace urine) Skin: pallor Neuro/Psych: other (Appears to be moving all 4 extremities) - Line/s RUE PICC Lines: No drainage, No erythema - Time Spent With Patient Time Spent with Patient: greater than 35 minutes Time Spent with Patient: Greater than 35 minutes spent on this patients care, greater than 50% of time spent counseling, educating, and coordinating care regarding the above mentioned plan. ICD10 Worksheet Patient Problems: Problems Problem Status Onset Hydronephrosis Acute
[2018-03-07] MEDS ORDERED: CALCIUM GLUCONATE 50 ML IV ONE (09:12)
[2018-03-07] MEDS ORDERED: CALCIUM GLUCONATE 1 GM in D5W 50 ML IV ONE (09:30)
[2018-03-07] MEDS: morphINE SR 15 MG TAB PO SCH ×2 (09:41→22:12)
[2018-03-07] MEDS ORDERED: NOREPINEPHRINE BITARTRATE 4 MG in NS 500 ML IV SCH (10:00)
[2018-03-07] MEDS: VASOPRESSIN 25 UNIT in NS 250 ML IV SCH ×2 (10:10→19:54)
[2018-03-07] MEDS: HYDROCORTISONE 100 MG/2 ML VIAL IVP SCH ×3 (11:19→22:18)
--- NOTE | 2018-03-07 14:10 | SOAPPROG ---
SOAP Progress Note Assessment/Plan: Assessment: 1. arf: likely atn from hypotension/sepsis, no hydro noted on u/s here. Could consider CT to re-eval but given critical illness probably not warranted. Creat stable but poor uo and no real evidence of recovery. Acidosis improved with iv bicarb but still with mild hyperK and likely sig hyperphos as well. Long discussion with multiple family members re: hd. At this time they are struggling with decision of how long to continue aggressive care. I advised that dialysis is not going to determine whether or not he recovers, though withholding hd could shorten his life if electrolyte issues worsen. There is no pressing need for hd currently but if aggressive care is to continue he will likely need tomorrow. They are planning to meet with palliative care and other treating physicians later this afternoon to gain additional insights. 2. shock: bp better with vaso, will give some iv albumin as I expect he is third spacing significantly. On ivf with bicarb, would cont this. Overall prognosis appears extremely poor at this point. 3. hyperK: stable, mild but most likely issue to force decision re: hd. Cont iv bicarb. 4. met acidosis: improved, cont iv bicarb. 5. hyperphos/hypoCa: would avoid replacing Ca iv if possible due to risk of precipitation.. 6. C diff: fulminant, doing poorly. On high dose po vanc per ID. Plan: 03/07/18 13:57 Subjective: Started on vaso this am, bp has improved. Pt not responsive. Multiple generations of family present. Objective: Vital Signs Temp Pulse Resp BP Pulse Ox 36.4 C 93 14 133/81 H 93 03/07/18 07:00 03/07/18 13:00 03/07/18 13:00 03/07/18 13:00 03/07/18 13:00 Laboratory Results 03/07/18 05:00 03/07/18 05:00 03/06/18 03/07/18 03/08/18 05:59 05:59 05:59 Intake Total 785 1980 Output Total 560 Balance 785 1420 Physical Exam - Physical Exam General Appearance: other (agonal, not responsive) Respiratory: lungs clear (anteriorly) Cardiac/Chest: regular rate, rhythm Abdomen: distended, other (quiet, firm) Extremities: pedal edema ICD10 Worksheet Patient Problems: Problems Problem Status Onset Hydronephrosis Acute
--- NOTE | 2018-03-07 14:21 | HOSPPROG ---
Hospitalist Progress Note Assessment/Plan: 67 yo M w multiple myeloma, plasmacytoma, R renal obstruction and life threatening cdiff w likely toxic megacolon sepsis: 2/2 severe cdiff on 2 pressors, stress dose steroids code: now DNR cdiff: severe on po vancomycin and IV flagyl appreciate ID input concerning abdominal exam surgical consult if family desires completely aggressive care- this isnt clear BRENNA: pre renal plus pre existing renal disease from MM has been volume resuscitated on bicarb gtt for acidosis potassium noted no needs for HD at this point appreciate renal assistance pyuria: noted broad spectrum abx on hold given c diff dispo: icu gravely ill poor prognosis 40 min crit care Subjective: abd xray w dilated colon (interp by me). case d/w dr ashley, dr lewis. critically ill Objective: Vital Signs Temp Pulse Resp BP Pulse Ox 36.4 C 99 15 120/71 93 03/07/18 07:00 03/07/18 14:00 03/07/18 14:00 03/07/18 14:00 03/07/18 14:00 Laboratory Results 03/07/18 05:00 03/07/18 05:00 03/06/18 03/07/18 03/08/18 05:59 05:59 05:59 Intake Total 785 1980 Output Total 560 Balance 785 1420 - Physical Exam Constitutional: chronically ill appearing, cachectic, other (unresponsive) Eyes: PERRL, anicteric sclera Ears, Nose, Mouth, Throat: moist mucous membranes, hearing normal Cardiovascular: regular rate and rhythym, no murmur, rub, or gallop Respiratory: no respiratory distress, no rales or rhonchi Gastrointestinal: other (distended, firm, absent bowel sounds) Genitourinary: no bladder fullness, No de león in urethra Skin: warm, normal color Musculoskeletal: No full muscle strength, No no muscle tenderness Neurologic: No AAOx3 Psychiatric: No interacting appropriately ICD10 Worksheet Patient Problems: Problems Problem Status Onset Hydronephrosis Acute
--- NOTE | 2018-03-07 15:19 | SOAPPROG ---
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 1. Septic shock: He is requiring 2 vasopressors. He has worsening acute renal failure. His neurological function continues to decline. 2. C diff colitis: He is on IV Flagyl and oral vancomycin. 3. Multiple myeloma: He does appear to be responding to Velcade Revlimid and dexamethasone as he has reduction of his monoclonal protein. However, his overall clinical status continues to deteriorate. We discussed his code status today and the family stated that he previously did not want to be resuscitated did not want to be on a ventilator. I placed a DNR DNI order in the chart. They would like to see how he does over the next 24 hrs to see if he improves which I think is reasonable. 03/07/18 15:17 Subjective: Had significant hypertension today is currently on 2 vasopressors. Mental status is not improved. Objective: Vital Signs Temp Pulse Resp BP Pulse Ox 36.4 C 99 15 120/71 93 03/07/18 07:00 03/07/18 14:00 03/07/18 14:00 03/07/18 14:00 03/07/18 14:00 Laboratory Results 03/07/18 05:00 03/07/18 05:00 03/06/18 03/07/18 03/08/18 05:59 05:59 05:59 Intake Total 785 1980 Output Total 560 Balance 785 1420 General: Cachectic male, does not answer any questions, occasionally moans, does not open eyes HEENT: Sunken eyes, oropharynx is dry Cardiovascular: Tachycardic Pulmonary: Coarse breath sounds bilaterally Abdomen: Distended slight tenderness bowel sounds are present Extremities: No cyanosis clubbing or edema Neuro: Does not answer any questions, somnolent, lethargic ICD10 Worksheet Patient Problems: Problems Problem Status Onset Hydronephrosis Acute
--- NOTE | 2018-03-07 15:37 | ASMTCASEMG ---
Living Arrangements What is your living Answers: With Spouse arrangement? Who do you live with? Type Of Residence What kind of residence do Answers: Apartment you live in? Discharge Plan Comments Coordination Status Comments Notes: Patient is a 67yo male with hx of NHL and a new DX of large intra abdominal plasmacytoma currently undergoing chemo. Patient has been admitted for abdominal distension/pain, plasmacytoma, BRENNA, bilateral hydronephrosis, PNA,leukocytosis,hx of NHL, protein calorie malnutrition. Patient's code status changed to DNR by Dr. Goldy Carrasco. Prognosis is guarded. Patient is critically ill. OT/PT ordered. CM will follow. Date Signed: 03/07/2018 03:36 PM Electronically Signed By:Elvia Carter LCSW
--- NOTE | 2018-03-07 15:41 | PDINTPN ---
Assistant Hall Director Progress Note Assessment/Plan: 67 M with history of NHL and newly acuired multiple myeloma and large intra- abdominal plasmacytoma admitted initially at [facility] and diagnosed with PNA and C diff colitis. He was treated with multiple antibiotics there but transferred to [facility] for further monitoring. He arrived 03/05 but developed hypotension 03/06 and was transferred to the ICU. He initially responded to IVF but later required pressors to maintain his MAP >65. Complicating his picture is acute renal failure likely related to hemodynamic ATN with poor UOP. * Severe septic shock with increasing pressor requirements- now levophed 10, vasopressin, and stress dose steroids. The source is very likely severe C diff colitis for which he is getting both po vanco and IV flagyl. * BRENNA related to above; less likely myeloma kidney since serum proteins have reduced with chemo. His uop is low (oliguric) with a guarded prognosis. He also has a right sided nephrostomy tube. * Hypoxia- related to above. He seems to be protecting his airway for now, but was made a DNR earlier today * Dispo: I had a 20-minute discussion with the family earlier today (as well as with the remaining team) concerning his prognosis, which is poor. Vasopressin and stress dose steroids were added today with improvement in hemodynamic stability but I am not optimistic about his probable outcome. Reasonable to wait another 24 hours as discussed with oncology. * * critical care time 45 minutes Subjective: moaning in bed, minimally responsive Objective: Vital Signs Temp Pulse Resp BP Pulse Ox 36.4 C 87 24 H 110/78 94 03/07/18 07:00 03/07/18 15:00 03/07/18 15:00 03/07/18 15:00 03/07/18 15:00 Laboratory Results 03/07/18 05:00 03/07/18 05:00 03/06/18 03/07/18 03/08/18 05:59 05:59 05:59 Intake Total 785 1980 Output Total 560 Balance 785 1420 Physical Exam - Physical Exam General Appearance: obtunded, thin, other (cachectic, minimally responsive if at all) EENT: PERRL/EOMI Neck: supple Respiratory: lungs clear, normal breath sounds, decreased breath sounds, No respiratory distress, No accessory muscle use Cardiac/Chest: regular rate, rhythm, No edema Abdomen: distended, guarding, rigid, No normal bowel sounds Skin: warm/dry, mottled, No cyanosis Lymphatic: no adenopathy Extremities: No pedal edema Neuro/Psych: cognition abnormalities, No abnormal agent broker II-XII ICD10 Worksheet Patient Problems: Problems Problem Status Onset Hydronephrosis Acute
--- NOTE | 2018-03-07 16:40 | ASMTCMCOM ---
CM Note CM Note Notes: Stat team called for patient this am. Patient to transfer to ICU. Teresa the Foreman Or Supervisor And Operator has attempted to reach the patient's and daughter with no success. Prognosis guarded at this point. CM to follow. Plan: TBD Date Signed: 03/06/2018 10:33 AM Electronically Signed By:Greta Victoria RN
[2018-03-07] MEDS ORDERED: AMIODARONE HCL 200 ML IV ONE (17:13)
[2018-03-07] MEDS ORDERED: AMIODARONE HCL 100 ML IV ONE (17:13)
[2018-03-07] MEDS ORDERED: morphINE 10 MG/0.5 ML UDSYR PO PRN (17:14)
[2018-03-07] MEDS: ALBUMIN 25% 100 ML IV SCH (17:34)
[2018-03-08] MEDS ORDERED: AMIODARONE HCL 540 MG in D5W 300 ML IV ONE
[2018-03-08] MEDS: ALBUMIN 25% 100 ML IV SCH ×3 (00:58→11:10)
[2018-03-08] MEDS: HYDROmorphONE/DILAUDID 1 MG/ML INJ IVP PRN ×9 (00:59→17:19)
[2018-03-08] MEDS: LORazepam 2 MG/ML INJ IVP PRN ×3 (04:58→17:19)
[2018-03-08] MEDS: VANCOMYCIN 125 MG/2.5 ML UDL PO SCH ×2 (04:58→08:31)
[2018-03-08] MEDS: HYDROCORTISONE 100 MG/2 ML VIAL IVP SCH ×2 (04:58→11:11)
[2018-03-08] MEDS: NOREPINEPHRINE BITARTRATE 4 MG in NS 500 ML IV SCH (07:10)
[2018-03-08] MEDS: SODIUM BICARBONATE 150 MEQ in D5W 1,000 ML IV SCH (07:38)
[2018-03-08] MEDS ORDERED: CALCIUM GLUCONATE 2 GM in NS 50 ML IV ONE (07:59)
[2018-03-08 08:04] VITALS: BP 91/75
[2018-03-08] MEDS: morphINE SR 15 MG TAB PO SCH ×2 (08:31→12:07)
--- NOTE | 2018-03-08 09:36 | HOSPPROG ---
Hospitalist Progress Note Assessment/Plan: 67 yo M w multiple myeloma, plasmacytoma, R renal obstruction and life threatening cdiff w likely toxic megacolon plan of care: family likely to transition to comfort care awaiting more family members no additional diagnostics right now sepsis: 2/2 severe cdiff on 2 pressors, stress dose steroids code: now DNR cdiff: severe on po vancomycin and IV flagyl appreciate ID input concerning abdominal exam surgical consult if family desires completely aggressive care- this isnt clear BRENNA: pre renal plus pre existing renal disease from MM has been volume resuscitated on bicarb gtt for acidosis potassium noted no needs for HD at this point appreciate renal assistance pyuria: noted broad spectrum abx on hold given c diff dispo: icu gravely ill poor prognosis 40 min crit care Subjective: ongoing pressor requirement. family considering transitioning to comfort care. niow tachycardic Objective: Vital Signs Temp Pulse Resp BP Pulse Ox 36.4 C 149 H 15 91/75 L 94 03/07/18 07:00 03/08/18 07:00 03/08/18 07:00 03/08/18 07:00 03/08/18 07:00 Laboratory Results 03/07/18 05:00 03/08/18 04:45 03/07/18 03/08/18 03/09/18 05:59 05:59 05:59 Intake Total 1980 6300 Output Total 560 1045 Balance 1420 5255 - Physical Exam Constitutional: chronically ill appearing, cachectic, other (unresponsive) Eyes: PERRL, anicteric sclera Ears, Nose, Mouth, Throat: moist mucous membranes, hearing normal Cardiovascular: tachycardia Respiratory: no respiratory distress, no rales or rhonchi Gastrointestinal: other (distended w absent bowel sounds) Genitourinary: No de león in urethra Skin: normal color, No warm Musculoskeletal: no muscle tenderness, No full muscle strength Neurologic: No AAOx3 Psychiatric: No interacting appropriately, No not anxious Lymph, Heme, Immunologic: no cervical LAD ICD10 Worksheet Patient Problems: Problems Problem Status Onset Hydronephrosis Acute
--- NOTE | 2018-03-08 11:01 | SOAPPROG ---
SOAP Progress Note Assessment/Plan: Assessment/Plan: Pt with h/o nephrolithiasis, R hydronephrosis s/p nephrostomy tube, abdominal plasmacytoma, here with BRENNA and C. diff. Pt remains on pressors, Cr 2.6 currently and acidosis and hyperkalemia stabilized with bicarb ggt. Noted that pt going to comfort care measures, family here to see him. Nephrology will sign off at this time, please call if you have any additional questions or concerns or if there is a change in disposition. Objective: Vital Signs Temp Pulse Resp BP Pulse Ox 36.4 C 149 H 15 91/75 L 94 03/07/18 07:00 03/08/18 07:00 03/08/18 07:00 03/08/18 07:00 03/08/18 07:00 Laboratory Results 03/07/18 05:00 03/08/18 04:45 03/07/18 03/08/18 03/09/18 05:59 05:59 05:59 Intake Total 1980 6300 Output Total 560 1045 Balance 1420 5255 ICD10 Worksheet Patient Problems: Problems Problem Status Onset Hydronephrosis Acute
[2018-03-08] MEDS: morphINE 10 MG/0.5 ML UDSYR PO PRN ×6 (11:50→20:28)
[2018-03-08] MEDS: ATROPINE 1% 5 ML OPHT.BTL SL PRN ×9 (11:51→20:28)
--- NOTE | 2018-03-08 14:56 | SOAPPROG ---
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 Family members have pursued comfort measures earlier this AM. 03/08/18 14:55 Subjective: Family has decided to pursue comfort measure. Objective: Vital Signs Temp Pulse Resp BP Pulse Ox 36.4 C 149 H 15 91/75 L 94 03/07/18 07:00 03/08/18 07:00 03/08/18 07:00 03/08/18 07:00 03/08/18 07:00 Laboratory Results 03/07/18 05:00 03/08/18 04:45 03/07/18 03/08/18 03/09/18 05:59 05:59 05:59 Intake Total 1980 6300 Output Total 560 1045 Balance 1420 5255 Exam deferred ICD10 Worksheet Patient Problems: Problems Problem Status Onset Hydronephrosis Acute
--- NOTE | 2018-03-08 15:34 | PDINTPN ---
Weight Analyst Progress Note Assessment/Plan: 67 M with history of NHL and newly acuired multiple myeloma and large intra- abdominal plasmacytoma admitted initially at [facility] and diagnosed with PNA and C diff colitis. He was treated with multiple antibiotics there but transferred to [facility] for further monitoring. He arrived 03/05 but developed hypotension 03/06 and was transferred to the ICU. He initially responded to IVF but later required pressors to maintain his MAP >65. Complicating his picture is acute renal failure likely related to hemodynamic ATN with poor UOP. * Severe septic shock with increasing pressor requirements- now levophed 10, vasopressin, and stress dose steroids. The source is very likely severe C diff colitis for which he is getting both po vanco and IV flagyl. * BRENNA related to above; less likely myeloma kidney since serum proteins have reduced with chemo. His uop is low (oliguric) with a guarded prognosis. He also has a right sided nephrostomy tube. * Hypoxia- related to above. He seems to be protecting his airway for now, but was made a DNR earlier today * Dispo: developed rapid afib 03/07 treated with amiodarone. Family decided on comfort care only, which is appropriate in my opinion. Subjective: now comfort only Objective: Vital Signs Temp Pulse Resp BP Pulse Ox 36.4 C 149 H 15 91/75 L 94 03/07/18 07:00 03/08/18 07:00 03/08/18 07:00 03/08/18 07:00 03/08/18 07:00 Laboratory Results 03/07/18 05:00 03/08/18 04:45 03/07/18 03/08/18 03/09/18 05:59 05:59 05:59 Intake Total 1980 6300 Output Total 560 1045 Balance 1420 5255 Physical Exam - Physical Exam General Appearance: moderate distress, obtunded, unresponsive, thin, other ( cachectic) EENT: PERRL/EOMI Neck: supple Respiratory: lungs clear, normal breath sounds, No respiratory distress, No accessory muscle use Cardiac/Chest: regular rate, rhythm, No edema Abdomen: distended, guarding, rebound, No soft Skin: warm/dry, mottled, No cyanosis Lymphatic: no adenopathy Extremities: No pedal edema Neuro/Psych: cognition abnormalities ICD10 Worksheet Patient Problems: Problems Problem Status Onset Hydronephrosis Acute
== END 2018-03-08 22:51 | disposition expired | DRG 871 ==
LOC: F1N 17:10 → F2N 03-06 10:42
PROVIDERS: ADMIT Internal Medicine; ATTEND Internal Medicine
PROC: 02HV33Z Insertion of Infusion Device into Superior Vena Cava, Percutaneous Approach (ICD-10-PCS; principal; 2018-03-06)
DX: A41.9 Sepsis, unspecified organism (principal); R65.21 Severe sepsis with septic shock; J18.9 Pneumonia, unspecified organism; G93.49 Other encephalopathy; N13.30 Unspecified hydronephrosis; C90.30 Solitary plasmacytoma not having achieved remission; C78.6 Secondary malignant neoplasm of retroperitoneum and peritoneum; E46 Unspecified protein-calorie malnutrition; A04.72 Enterocolitis due to Clostridium difficile, not specified as recurrent; E87.1 Hypo-osmolality and hyponatremia; E87.2 Acidosis; N17.9 Acute kidney failure, unspecified; K59.00 Constipation, unspecified; E86.0 Dehydration; E87.5 Hyperkalemia; E83.39 Other disorders of phosphorus metabolism; Z66 Do not resuscitate; Z51.5 Encounter for palliative care
CPT/HCPCS: 82784-90; C1751; J0282; J0456; J0610; J0696; J1170; J1720; J2060; P9047